=== PATIENT | female | born 1990 | race Caucasian/White ===

== ENCOUNTER 2023-04-07 09:10 | Day surgery (SDC) | payer SELFPAY ==
[~2023-04-07 09:10] MED LIST: DOCUSATE SODIUM 100 MG CAPSULE (FP) PO PRN; ONDANSETRON *ODT* 4 MG TABLET SL PRN; ONDANSETRON 4 MG/2 ML VIAL IVPUSH PRN
[2023-04-07] MEDS ORDERED: EPINEPHrine/PF 1 MG/1 ML (1:1,000) AMPULE ONE (10:22)
[2023-04-07] MEDS ORDERED: GUM MASTIC/STORAX/MSAL/ALCOHOL 1 DRP DROPSBTL MC ONE (10:24)
[2023-04-07] MEDS ORDERED: BUPIVACAINE HCL/PF 2.5 MG/ML - 30 ML VIAL IJ ONE (10:24)
[2023-04-07] MEDS ORDERED: LIDOCAINE HCL 1%, 10 MG/ML (20ML VIAL) ONE (10:24)
[2023-04-07] MEDS ORDERED: BACITRACIN ZINC 15 GM TUBE TOPICAL OINTMENT ONE (10:24)
[2023-04-07] MEDS ORDERED: ONDANSETRON 4 MG/2 ML VIAL ONE ×3 (11:30→17:20)
[2023-04-07] MEDS ORDERED: ceFAZolin SODIUM 1 GM VIAL ONE (11:30)
[2023-04-07] MEDS ORDERED: MIDAZOLAM HCL 2 MG/2 ML SINGLE DOSE VIAL ONE (11:30)
[2023-04-07] MEDS ORDERED: PROPOFOL 20 ML ONE ×2 (11:30→17:01)
[2023-04-07] MEDS ORDERED: DEXAMETHASONE SOD PHOSPHATE 4 MG/1 ML VIAL ONE ×2 (11:30→13:17)
[2023-04-07] MEDS ORDERED: ROCURONIUM BROMIDE 50 MG/5 ML SYRINGE ONE ×2 (12:19→13:33)
[2023-04-07] MEDS ORDERED: HYDROmorphone HCL/PF 1 MG/ML VIAL ONE ×2 (12:26→12:45)
[2023-04-07] MEDS ORDERED: ACETAMINOPHEN INJECTION 200 ML IVPB ONE (14:50)
[2023-04-07] MEDS ORDERED: SUGAMMADEX SODIUM 200 MG/2 ML VIAL ONE (15:59)
[2023-04-07] MEDS: LACTATED RINGERS SOLUTION 1,000 ML IV SCH ×2 (18:34→18:58)
[2023-04-07] MEDS ORDERED: ONDANSETRON 4 MG/2 ML VIAL IVPUSH PRN (18:35)
[2023-04-07] MEDS ORDERED: LACTATED RINGERS SOLUTION 1,000 ML IV SCH (18:45)
[2023-04-07 19:10] VITALS: RESP 18
[2023-04-07] MEDS: HYDROmorphone HCl 2 MG/ML VIAL IVPB PRN (20:02)
[2023-04-07] MEDS: CEFAZOLIN 1 GM in DEXTROSE 5%-WATER - 50 ML IVPB SCH ×3 (21:06→21:07)
[2023-04-08] MEDS: oxyCODONE HCL 5 MG TABLET PO PRN ×6 (00:07→20:15)
[2023-04-08] MEDS: CEFAZOLIN 1 GM in DEXTROSE 5%-WATER - 50 ML IVPB SCH ×3 (03:38→17:16)
[2023-04-08] MEDS: HYDROmorphone HCl 2 MG/ML VIAL IVPB PRN (04:09)
[2023-04-08] MEDS ORDERED: ENOXAPARIN NA (PORCINE) 40 MG/0.4 ML DISP.SYRIN SQ ONE (07:20)
[2023-04-08] MEDS: LACTATED RINGERS SOLUTION 1,000 ML IV SCH (15:34)
[2023-04-08] MEDS: ACETAMINOPHEN 325 MG TABLET (FP) PO PRN (20:13)
[2023-04-09] MEDS: CEFAZOLIN 1 GM in DEXTROSE 5%-WATER - 50 ML IVPB SCH ×3 (01:01→17:50)
[2023-04-09] MEDS: ACETAMINOPHEN 325 MG TABLET (FP) PO PRN ×3 (01:01→10:27)
[2023-04-09] MEDS: oxyCODONE HCL 5 MG TABLET PO PRN ×5 (01:02→16:34)
[2023-04-09] MEDS ORDERED: ENOXAPARIN NA (PORCINE) 40 MG/0.4 ML DISP.SYRIN SQ ONE (09:15)
[2023-04-09 14:51] VITALS: BP 110/49; TEMP 98.3
[2023-04-09] MEDS ORDERED: ACETAMINOPHEN 500 MG TABLET (FP) PO PRN (16:42)
[2023-04-09 17:57] VITALS: PULSE 100
== END 2023-04-09 19:52 | disposition home or self-care (01) ==
LOC: FASUSAT 09:10 → FM/S 19:40 → FASUSAT 04-09 19:52
PROVIDERS: ATTEND Surgery
CPT/HCPCS: 94760